=== PATIENT | male | born 1965 | race Caucasian/White ===

== ENCOUNTER 2017-01-23 08:07 | Emergency (ER) | payer OTHER ==
[~2017-01-23] VITALS: Ht 177.8 cm; Wt 93.7 kg
[~2017-01-23 08:07] MED LIST: PERCOCET 5/31 TABLET PO; ZOFRAN4 MG PO
[2017-01-23] MEDS ORDERED: LANSOPRAZOLE30 MG PO (08:24)
[2017-01-23] MEDS ORDERED: LOSARTAN-HCTZ1 EAC2 PO (08:25)
[2017-01-23 09:22] LABS: EOSINOPHIL (%) 1.1 % (0-5); EOSINOPHIL COUNT 0.1 K/uL (0-0.3); HEMATOCRIT 39.9 % (38.0-50.0); IMMATURE GRANULOCYTE (%) 0.2 % (0.0-0.7); LYMPHOCYTE COUNT 1.5 K/uL (1.0-2.8); MCH 32.3 PG (29.0-34.0); MCHC 37.3 G/DL (30.0-36.0); MCV 86.6 FL (86-99); MEAN PLAT.VOLUME 9.3 uM^3 (9.0-12.4); MONOCYTE (%) 12.9 % (3-12); MONOCYTE COUNT 0.7 K/uL (0-0.8); NEUTROPHIL (%) 57.4 % (45-76); PLATELET COUNT 139 K/uL (156-360); RBC DIS.WIDTH-CV 12.4 % (11.8-14.6); RBC DIS.WIDTH-SD 39.3 % (39-53); RED BLOOD COUNT 4.61 M/uL (4.00-5.50); WHITE BLOOD COUNT 5.3 K/uL (4.1-10.2)
[2017-01-23 09:46] LABS: CHLORIDE 85 mEq/L (99-109); POTASSIUM 2.7 mEq/L (3.7-5.4); SODIUM 120 mEq/L (136-147)
[2017-01-23 09:48] LABS: GLUCOSE 152 mg/dL (70-99)
[2017-01-23 09:50] LABS: ANION GAP 15 MEQ/L (2-14)
[2017-01-23 09:51] LABS: SERUM ETHYL ALCOHOL 376 mg/dL
[2017-01-23 09:53] LABS: UREA NITROGEN (BUN) 12 mg/dL (9-23)
[2017-01-23 09:56] LABS: GFR ESTIMATE (CALCULATED) > 59 mL/min/
[2017-01-23] MEDS ORDERED: K-DUR20 MEQ PO (10:16)
[2017-01-23 10:20] VITALS: BP 108/68
== END 2017-01-23 10:40 | disposition left against medical advice (07) ==
LOC: EME 08:07
PROVIDERS: Emergency Medicine
DX: E87.6 Hypokalemia (principal); E87.1 Hypo-osmolality and hyponatremia; F10.129 Alcohol abuse with intoxication, unspecified; Y90.8 Blood alcohol level of 240 mg/100 ml or more; F41.9 Anxiety disorder, unspecified; F32.9 Major depressive disorder, single episode, unspecified; K21.9 Gastro-esophageal reflux disease without esophagitis; I10 Essential (primary) hypertension
CPT/HCPCS: 80048; 81003; 85025; 93005; 99281; 99285; G0480

== ENCOUNTER 2017-02-05 08:53 | Emergency (ER) | payer OTHER ==
[2017-02-05] VITALS (13 sets, daily range): BP systolic 88–106; BP diastolic 49–69
[~2017-02-05] VITALS: Ht 167.6 cm; Wt 94.5 kg
[~2017-02-05 08:53] MED LIST changes: +K-DUR20 MEQ PO; +LANSOPRAZOLE30 MG PO; +LOSARTAN-HCTZ1 EAC2 PO
[2017-02-05 09:46] LABS: HEMATOCRIT 18.5 % (38.0-50.0); MCH 31.4 PG (29.0-34.0); MCHC 35.1 G/DL (30.0-36.0); MCV 89.4 FL (86-99); MEAN PLAT.VOLUME 10.3 uM^3 (9.0-12.4); PLATELET COUNT 160 K/uL (156-360); RBC DIS.WIDTH-CV 11.3 % (11.8-14.6); RBC DIS.WIDTH-SD 36.9 % (39-53)
[2017-02-05 09:49] LABS: CHLORIDE 74 mEq/L (99-109); POTASSIUM 2.6 mEq/L (3.7-5.4)
[2017-02-05 09:51] LABS: GLUCOSE 125 mg/dL (70-99)
[2017-02-05 09:53] LABS: ANION GAP 17 MEQ/L (2-14); TOTAL BILIRUBIN 13.9 mg/dL (0.0-1.0)
[2017-02-05 09:55] LABS: ALKALINE PHOSPHATASE 700 IU/L (3-129); GFR ESTIMATE (CALCULATED) 10 mL/min/; RED BLOOD COUNT 2.07 M/uL (4.00-5.50); WHITE BLOOD COUNT 12.9 K/uL (4.1-10.2)
[2017-02-05 09:56] LABS: UREA NITROGEN (BUN) 57 mg/dL (9-23)
[2017-02-05 10:00] LABS: SODIUM 111 mEq/L (136-147)
[2017-02-05] MEDS ORDERED: KLOR-CON M2020 MEQ PO (10:08)
[2017-02-05] MEDS ORDERED: BUSPAR10 MG PO (10:08)
[2017-02-05] MEDS ORDERED: CITALOPRAM HBR20 MG PO (10:08)
[2017-02-05] MEDS ORDERED: MULTIVITAMIN1 EAC2 PO (10:09)
[2017-02-05] MEDS ORDERED: CHLORDIAZEPOXID25 MG PO (10:09)
[2017-02-05 11:49] LABS: ABS NEUTROPHIL COUNT 11.2; ANISOCYTOSIS 1+; BAND NEUTROPHILS 1.8 % (0-8.0); EOSINOPHIL ABS CT 0; LYMPHOCYTES 6.2 % (15.0-45.0); METAMYELOCYTES 0.9 %; MICROCYTOSIS 1+; PLAT.SUFFICIENCY ADEQUATE; SEG.NEUTROPHILS 84.8 % (46.0-76.0); SPHEROCYTES 1+; STOMATOCYTES 1+
[2017-02-05 12:09] LABS: INTER. NORMALIZED RATIO 1.2; PROTHROMBIN TIME 12.1 (9.2-11.2)
[2017-02-05 13:46] LABS: ADD MIUA? YES; BILIRUBIN SMALL; BLOOD LARGE; COLOR AMBER ((YELLOW)); GLUCOSE (STRIP) 50; KETONES NEGATIVE; LEUKOCYTES NEGATIVE; NITRITE NEGATIVE; PROTEIN (STRIP) 30; SPECIFIC GRAVITY 1.011 (1.000-1.030)
[2017-02-05 13:55] LABS: BACTERIA RARE /HPF; CALCIUM OXALATE CRYSTALS 3+ /HPF; EPITHELIAL CELLS RARE /HPF; HYALINE CASTS 0-5 /LPF; MUCUS TRACE /LPF; RED BLOOD CELLS 0-5 /HPF (0-5); UCUL ADDED? NO
== END 2017-02-05 17:19 | disposition short-term general hospital (02) ==
LOC: EME 08:53
PROVIDERS: Emergency Medicine
DX: K92.2 Gastrointestinal hemorrhage, unspecified (principal); D64.9 Anemia, unspecified; K76.7 Hepatorenal syndrome; I95.9 Hypotension, unspecified; E86.0 Dehydration; I10 Essential (primary) hypertension
CPT/HCPCS: 70450; 71010; 80053; 81003; 83605; 85025; 85610; 86900; 86901; 86920; 87040; 93005; 99281; 99284; C9113; J2354; J7030; J7050; P9016

== ENCOUNTER 2017-02-22 12:34 | Inpatient (IN) | payer OTHER ==
[2017-02-22] VITALS (7 sets, daily range): BP systolic 128–157; BP diastolic 68–97
[~2017-02-22] VITALS: Ht 170.2 cm; Wt 89.6 kg
[~2017-02-22 12:34] MED LIST changes: +BUSPAR10 MG PO; +CHLORDIAZEPOXID25 MG PO; +CITALOPRAM HBR20 MG PO; +KLOR-CON M2020 MEQ PO; +MULTIVITAMIN1 EAC2 PO
[2017-02-22 14:27] LABS: CHLORIDE 104 mEq/L (99-109); POTASSIUM 4.3 mEq/L (3.7-5.4); SODIUM 138 mEq/L (136-147)
[2017-02-22 14:29] LABS: GLUCOSE 86 mg/dL (70-99)
[2017-02-22 14:30] LABS: ANION GAP 9 MEQ/L (2-14)
[2017-02-22 14:32] LABS: HEMATOCRIT 20.3 % (38.0-50.0); MCH 30.1 PG (29.0-34.0); MEAN PLAT.VOLUME 9.6 uM^3 (9.0-12.4); PLATELET COUNT 245 K/uL (156-360); RBC DIS.WIDTH-CV 15.5 % (11.8-14.6); RBC DIS.WIDTH-SD 53.4 % (39-53); RED BLOOD COUNT 2.16 M/uL (4.00-5.50); WHITE BLOOD COUNT 5.6 K/uL (4.1-10.2)
[2017-02-22 14:33] LABS: GFR ESTIMATE (CALCULATED) > 59 mL/min/
[2017-02-22 14:34] LABS: UREA NITROGEN (BUN) 8 mg/dL (9-23)
[2017-02-22 15:19] LABS: TOTAL BILIRUBIN 1.9 mg/dL (0.0-1.0)
[2017-02-22 15:20] LABS: ALKALINE PHOSPHATASE 315 IU/L (3-129)
[2017-02-22 15:23] LABS: DIRECT BILIRUBIN 1.4 mg/dL (0.0-0.3)
[2017-02-22] MEDS ORDERED: CITALOPRAM HBR40 MG PO (17:19)
[2017-02-22] MEDS ORDERED: CLONAZEPAM0.5 MG PO (17:19)
[2017-02-22] MEDS ORDERED: PROTONIX40 MG PO (17:22)
[2017-02-23] VITALS (8 sets, daily range): BP systolic 122–161; BP diastolic 54–85
[2017-02-23 09:11] LABS: HEMATOCRIT 24.6 % (38.0-50.0); MCH 31.6 PG (29.0-34.0); MCHC 34.1 G/DL (30.0-36.0); MCV 92.5 FL (86-99); MEAN PLAT.VOLUME 10.1 uM^3 (9.0-12.4); PLATELET COUNT 244 K/uL (156-360); RBC DIS.WIDTH-CV 16.5 % (11.8-14.6); RBC DIS.WIDTH-SD 55.9 % (39-53); WHITE BLOOD COUNT 4.8 K/uL (4.1-10.2)
[2017-02-23 09:32] LABS: RED BLOOD COUNT 2.66 M/uL (4.00-5.50)
[2017-02-23 09:37] LABS: INTER. NORMALIZED RATIO 1.1; PROTHROMBIN TIME 11.5 (9.2-11.2); PTT 31.7 (25-32)
[2017-02-23 09:41] LABS: ALKALINE PHOSPHATASE 269 IU/L (3-129); ANION GAP 6 MEQ/L (2-14); CHLORIDE 108 MEQ/L (99-109); GFR ESTIMATE (CALCULATED) > 59 mL/min/; GLUCOSE 125 mg/dL (70-99); HEMATOCRIT 24.6 % (38.0-50.0); MCV 92.5 FL (86-99); POTASSIUM 4.3 MEQ/L (3.7-5.4); SAMPLE HEMOLYSIS CHECK 0; SAMPLE ICTERIC CHECK 0; SAMPLE LIPEMIA CHECK 0; SODIUM 140 MEQ/L (136-147); UREA NITROGEN (BUN) 8 mg/dL (9-23)
[2017-02-23 09:58] LABS: FERRITIN 904 NG/ML (22-322)
[2017-02-23 12:16] LABS: HBSG INDEX 0.21; HPCA INDEX 0.09
[2017-02-23 17:53] LABS: MCV 92.9 FL (86-99)
[2017-02-24 03:00] VITALS: BP 129/77
[2017-02-24 06:58] VITALS: BP 145/82
[2017-02-24 07:12] LABS: HEMATOCRIT 24.1 % (38.0-50.0); MCH 30.9 PG (29.0-34.0); MCHC 32.8 G/DL (30.0-36.0); MCV 94.1 FL (86-99); MEAN PLAT.VOLUME 10.1 uM^3 (9.0-12.4); PLATELET COUNT 259 K/uL (156-360); RBC DIS.WIDTH-CV 16.4 % (11.8-14.6); RBC DIS.WIDTH-SD 56.9 % (39-53); RED BLOOD COUNT 2.56 M/uL (4.00-5.50); WHITE BLOOD COUNT 5.3 K/uL (4.1-10.2)
[2017-02-24 11:11] VITALS: BP 147/81
[2017-02-24 15:30] VITALS: BP 141/82
[2017-02-24 17:29] LABS: ANTI-SMOOTH MUSCLE (Actin)+ <20 U (<20); MITOCHONDRIAL (M2) ANTIBODIES+ <=20.0 U (<=20.0)
[2017-02-24 19:55] VITALS: BP 135/81
[2017-02-24 23:25] VITALS: BP 131/77
[2017-02-25 03:20] VITALS: BP 132/78; BP 134/68
[2017-02-25 07:00] LABS: HEMATOCRIT 24.3 % (38.0-50.0); MCH 30.9 PG (29.0-34.0); MCHC 32.9 G/DL (30.0-36.0); MCV 93.8 FL (86-99); MEAN PLAT.VOLUME 10.4 uM^3 (9.0-12.4); PLATELET COUNT 257 K/uL (156-360); RBC DIS.WIDTH-CV 16.2 % (11.8-14.6); RED BLOOD COUNT 2.59 M/uL (4.00-5.50); WHITE BLOOD COUNT 4.8 K/uL (4.1-10.2)
[2017-02-25 07:04] VITALS: BP 157/87
[2017-02-25 08:41] LABS: ANION GAP 6 MEQ/L (2-14); CHLORIDE 110 MEQ/L (99-109); GFR ESTIMATE (CALCULATED) > 59 mL/min/; POTASSIUM 3.7 MEQ/L (3.7-5.4); SAMPLE HEMOLYSIS CHECK 0; SAMPLE ICTERIC CHECK 0; SAMPLE LIPEMIA CHECK 0; SODIUM 142 MEQ/L (136-147); UREA NITROGEN (BUN) 6 mg/dL (9-23)
[2017-02-25 08:42] LABS: GLUCOSE 79 mg/dL (70-99)
[2017-02-25 11:02] VITALS: BP 135/82
[2017-02-25] MEDS ORDERED: PROTONIX40 MG PO (11:12)
[2017-02-25] MEDS ORDERED: IRON325 M1 PO (14:38)
== END 2017-02-25 17:18 | disposition home or self-care (01) | DRG 378 ==
LOC: EME 12:34 → 5EAST 16:46 → EDOF 16:46 → 5EAST 20:23
PROVIDERS: Internal Medicine; Internal Medicine Gastroenterology
PROC: 30233N1 Transfusion of Nonautologous Red Blood Cells into Peripheral Vein, Percutaneous Approach (ICD-10-PCS; principal; 2017-02-22)
DX: K92.2 Gastrointestinal hemorrhage, unspecified (principal); K70.31 Alcoholic cirrhosis of liver with ascites; K70.10 Alcoholic hepatitis without ascites; K76.6 Portal hypertension; I10 Essential (primary) hypertension; F43.10 Post-traumatic stress disorder, unspecified; D50.0 Iron deficiency anemia secondary to blood loss (chronic); K31.7 Polyp of stomach and duodenum; K21.9 Gastro-esophageal reflux disease without esophagitis; I85.10 Secondary esophageal varices without bleeding; G44.209 Tension-type headache, unspecified, not intractable; F10.21 Alcohol dependence, in remission; Z79.899 Other long term (current) drug therapy; Z87.891 Personal history of nicotine dependence
CPT/HCPCS: 36415; 74176; 80048; 80053; 80076; 82728; 83516 90; 85014; 85018; 85025; 85027; 85610; 85730; 86038; 86256 90; 86803; 86900; 86901; 86920; 87340; 99281; 99285; C9113; J2250; J2354; J3010; J3411; J7030; J7050; P9016